=== PATIENT | female | born 1980 | race African-American/Black ===

== ENCOUNTER 2024-01-16 22:17 | Emergency (ER) | payer OTHER ==
[~2024-01-16 22:17] MED LIST: Iopamidol 370 76% 100 ML VIAL ONE
[2024-01-16] MEDS ORDERED: Morphine 4 MG/ML VIAL ONE (22:48)
[2024-01-16] MEDS ORDERED: Pantoprazole 40 MG VIAL ONE (22:48)
[2024-01-16] MEDS ORDERED: Metoclopramide HCl 10 MG (2 mL) VIAL ONE (22:48)
[2024-01-16 22:55] LABS: Hematocrit 43.1 % (36.0-47.0); Mean Corpuscular HGB CONC 32.5 g/dL (32.0-36.0); Mean Corpuscular Hemoglobin 29.7 pg (27.0-31.0); Mean Corpuscular Volume 91.4 fl (78.0-98.0); Mean Platelet Volume 11.1 fL (7.4-10.4); Platelet Count 347 10x3/uL (130-400); RBC Distribution Width 13.5 % (11.5-14.5); Red Blood Cell (RBC) Count 4.72 mill/uL (4.20-5.40); White Blood Cell (WBC) Count 13.2 10x3/uL (4.8-10.8)
[2024-01-16 22:57] LABS: Eosinophils 1 % (0-10); Lymphocytes 10 % (21-51); MDiff Complete? YES; Monocytes 3 % (0-10); Neutrophil 86 % (42-75)
[2024-01-16 23:02] LABS: BHCG - Serum Negative (NEGATIVE); Pregs Control Background? CLEAR/WHITE (CLR/WHITE); Pregs Control Bar Appear? YES (CONTROL BAR)
[2024-01-16 23:14] LABS: ALT (SGPT) 19 U/L (8-55); AST (SGOT) 14 U/L (5-34); Albumin 4.7 g/dL (3.5-5.0); Alkaline Phosphatase 76 U/L (40-110); Anion Gap 24 mmol/L (10-20); BUN (Urea Nitrogen) 10 mg/dL (7.0-18.7); Bilirubin, Total 0.4 mg/dL (0.2-1.2); Calc. Creatinine Clearance 0 mL/min (70-130); Calcium 10.3 mg/dL (7.8-10.44); Carbon Dioxide 19 mmol/L (22-29); Chloride 103 mmol/L (98-107); Estimated GFR 63; Globulin 3.8 g/dL (2.4-3.5); Glucose 164 mg/dL (70-105); Lipase 21 U/L (8-78); Potassium 3.6 mmol/L (3.5-5.1); Protein, Total 8.5 g/dL (6.0-8.3); Sodium 142 mmol/L (136-145)
[2024-01-16 23:17] LABS: Critical Call Chem-Lactate ERS.JD @ 2316
[2024-01-17] MEDS ORDERED: Piperacillin/Tazobactam 4.5 GM VIAL ONE (00:33)
== END 2024-01-17 02:30 ==
LOC: MADERS 22:17
DX: K52.9 Noninfective gastroenteritis and colitis, unspecified (principal); F44.5 Conversion disorder with seizures or convulsions; F17.200 Nicotine dependence, unspecified, uncomplicated
CPT/HCPCS: 71045; 74177; 80053; 83605; 83690; 84703; 85025; 87040; 87077; 87149; 96361; 96365; 96375; J2272; J2470; J2543; J2765; Q9967

== ENCOUNTER 2024-02-07 05:54 | Emergency (ER) | payer SELFPAY ==
[2024-02-07] MEDS ORDERED: Ketorolac Tromethamine 30 MG (1 mL) VIAL ONE (06:12)
[2024-02-07] MEDS ORDERED: Ondansetron ODT 4 MG TAB ONE (06:12)
== END 2024-02-07 06:32 | disposition home or self-care (01) ==
LOC: MADERS 05:54
DX: B34.9 Viral infection, unspecified (principal); F17.200 Nicotine dependence, unspecified, uncomplicated
CPT/HCPCS: 96372; 99283; J1885; Q0162